=== PATIENT | male | born 1935 | race Caucasian/White ===

== ENCOUNTER 2017-04-29 10:15 | Emergency (ER) | payer MEDICARE, BC ==
[2017-04-29 10:38] VITALS: BP 149/77
--- NOTE | 2017-04-29 11:31 | UC ---
Hand/Wrist HPI - HPI Summary HPI Summary: pt with recent h/o of prolonged febrile illness dx as and tx for uti with levaquin. finished abx 10 days ago. during w/u for febrile illness, pt tested neg for lyme dz. developed redness swelling and pain in right foot mcp 4 days ago. 5/0 burning pain at rest. 10/10 sharp pain with movement. 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 2 days ago pt developed similar sx in left wrist. tx with tylenol. no recent injury or excessive use. does not currently feel ill. no changes in baseline gait disturbance. no recent confusion. denies h/o hepatic or renal impairment. - History Of Current Complaint Chief Complaint: UCUpperExtremity Stated Complaint: LEFT HAND PAIN (GOUT) Time Seen by Provider: 04/29/17 10:54 Hx Obtained From: Patient ?: Yes Onset/Duration: Sudden Onset, Lasting Days - 4, Still Present, Worse Since - 2 days ago Severity Initially: Moderate Severity Currently: Moderate Character Of Pain: Sharp, Aching, Burning Aggravating Factor(s): Movement Alleviating: Rest Associated Signs And Symptoms: Positive: Swelling, Redness. Negative: Bruising , Fever, Weakness, Numbness/Tingling Related History: Dominant Hand Left - Allergies/Home Medications Allergies/Adverse Reactions: Allergies Allergy/AdvReac Type Severity Reaction Status Date / Time No Known Allergies Allergy Verified 04/29/17 10:38 Home Medications: Home Medications Acetaminophen TAB* [Tylenol TAB*] 500 mg PO Q4H PRN 04/29/17 [History Confirmed 04/29/17] Aspirin [Aspirin 81 MG TAB] 81 mg PO DAILY 04/29/17 [History Confirmed 04/29/17] Calcium 0 mg PO DAILY 04/29/17 [History Confirmed 04/29/17] Cyanocobalamin TAB* [Vitamin B12 TAB*] 1,000 mcg PO DAILY 04/29/17 [History Confirmed 04/29/17] Lisinopril [Zestril 5 MG-] 5 mg PO DAILY 04/29/17 [History Confirmed 04/29/17] Multiple Vitamin [Multivitamins] 1 cap PO DAILY 04/29/17 [History Confirmed ] Grassflat-3 Fatty Acids [Grassflat 3] 1 cap PO DAILY 04/29/17 [History Confirmed ] PARoxetine HCL TAB* [Paxil TAB*] 20 mg PO DAILY 04/29/17 [History Confirmed ] Simvastatin TAB(NF) [Zocor(NF)] 20 mg PO QAM 04/29/17 [History Confirmed ] PMH/Surg Hx/FS Hx/Imm Hx - Additional Past Medical History Additional PMH: "spastic colitis, cystoplasmosis, sternal fx s/p kicked by horse, 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 and subsequent hospital; altered gait due to dizziness; uti tx with 3 weeks of abx tx" - reviewed with pt - Surgical History Surgical History: Yes Surgery Procedure, Year, and Place: L inguinal 1990 with benign tumor around spermatic cord, intestinal hernia repairs - Family History Known Family History: Negative: Cardiac Disease, Hypertension, Diabetes - Social History Occupation: Retired Lives: With Family - cares for with alzheimers Alcohol Use: None Substance Use Type: None Smoking Status (MU): Never Smoked Tobacco Review of Systems Constitutional: Negative Skin: Negative Eyes: Negative ENT: Negative Respiratory: Negative Cardiovascular: Negative Gastrointestinal: Negative Genitourinary: Negative Musculoskeletal: Arthralgia Neurological: Negative Psychological: Negative All Other Systems Reviewed And Are Negative: Yes Physical Exam Triage Information Reviewed: Yes Appearance: Well-Appearing, No Pain Distress, Well-Nourished Vital Signs: Initial Vital Signs Temp 99 F 04/29/17 10:20 Pulse 71 04/29/17 10:20 Resp 16 04/29/17 10:20 BP 149/77 04/29/17 10:20 Vital Signs Reviewed: Yes Eyes: Positive: Conjunctiva Clear. Negative: Discharge ENT: Positive: Hearing grossly normal. Negative: Muffled/hoarse voice Neck: Positive: Supple Respiratory: Positive: Lungs clear, Normal breath sounds, No respiratory distress, No accessory muscle use Cardiovascular: Positive: RRR, No Murmur Musculoskeletal: Positive: Other: - tender, reddness and min calor noted over rt le mcp and left wrist Neurological: Positive: Alert, Muscle Tone Normal Psychological: Positive: Age Appropriate Behavior Skin: Positive: Other - nonindurated redness and min imal calor noted over rt le mco and left wrist Hand/Wrist Course/Dx - Course Course Of Treatment: choose colchezine because nsaids not recommeded for geriatric pts and pt h/o steroid induced physcosis. reviewed med list with pharmacist to address possible satin interaction. nicolasa labs to eval for unreported hapatic/renal impairment and infectious etiology. - Differential Dx/Diagnosis Differential Diagnosis/HQI/PQRI: Cellulitis, Gout, Infection, Sprain, Strain Provider Diagnoses: the gout - Physician Notifications Discussed Patient Care With: d/w [facility] [place] pharmacist at 11:20am Discharge - Discharge Plan Condition: Stable Disposition: HOME Prescriptions: Colchicine [Mitigare] 0.6 mg PO SEE INSTRUCTIONS #3 cap Patient Education Materials: Gout (ED), Low Purine Diet (ED), Colchicine (By mouth) Referrals: Jesús Hackett MD [Primary Care Provider] - 1 Day
[2017-04-29 14:39] LABS: Hematocrit 42 % (42-52); Hemoglobin 13.4 g/dl (14.0-18.0); Mean Corpuscular HGB Conc 32 g/dl (31-36); Mean Corpuscular Hemoglobin 28 pg (27-31); Mean Corpuscular Volume 88 fL (80-94); Mean Platelet Volume 8 um3 (7.4-10.4); Red Blood Count 4.75 10^6/ul (4.0-5.4); Red Cell Distribution Width 14 % (10.5-15); White Blood Count 8.2 10^3/ul (3.5-10.8)
[2017-04-29 14:45] LABS: Albumin 3.8 g/dL (3.2-5.2); BUN/Creatinine Ratio 10.9 (8-20); Calcium 9.2 mg/dL (8.6-10.3); EGFR Non-African American 63.8 (>60); Globulin 3.4 g/dL (2-4); Potassium 4.6 mmol/L (3.5-5.0); Total Bilirubin 0.5 mg/dL (0.2-1.0); Total Protein 7.2 g/dL (6.4-8.9); Uric Acid 5.7 mg/dL (4.4-7.6)
[2017-04-29 15:12] LABS: Erythrocyte Sed Rate 77 mm/Hr (0-40)
--- NOTE | 2017-04-30 14:57 | UC ---
Progress - Progress Note Progress Note: called pt. informed of elevated esr and crp, normal uric acid and mildly decreased gfr. exlained that uric acid is often wnl s/p onset of gouty attack. elevate inflamatory markers c/w gout and grf quit good for his age and no problem with one time tx with colchezine. pt voiced understanding. just back from pcp and feeling better today.
== END 2017-04-29 11:39 | disposition home or self-care (01) ==
LOC: UCCORT 10:15
DX: M10.00 Idiopathic gout, unspecified site (principal); Z79.82 Long term (current) use of aspirin; Z87.440 Personal history of urinary (tract) infections
CPT/HCPCS: 36415; 80053; 84550; 85025; 85652; 86141; 99202; G0463